=== PATIENT | male | born 1990 | race Two or more races ===

== ENCOUNTER 2018-02-26 21:33 | Emergency (ER) | payer SELFPAY ==
[~2018-02-26] VITALS: Ht 172.7 cm; Wt 74.8 kg
[2018-02-26 21:51] VITALS: BP 108/51
== END 2018-02-27 00:08 | disposition home or self-care (01) ==
LOC: ER 21:33
DX: S09.90XA Unspecified injury of head, initial encounter (principal); R07.89 Other chest pain; M79.641 Pain in right hand; Y08.89XA Assault by other specified means, initial encounter; Y93.89 Activity, other specified; Y99.8 Other external cause status; Y92.89 Other specified places as the place of occurrence of the external cause
CPT/HCPCS: 70140; 71046; 73120